=== PATIENT | female | born 2000 | race Caucasian/White ===

== ENCOUNTER 2020-02-26 14:52 | Observation (INO) | END 2020-02-26 17:10 | disposition home or self-care (01) | LOC: 1NENULAB | PROVIDERS: ADMIT Obstetrics & Gynecology; ATTEND Obstetrics & Gynecology ==

== ENCOUNTER → 2020-03-20 00:10 | Observation (INO) | END | disposition home or self-care (01) | LOC: 1NENULAB | PROVIDERS: ADMIT Obstetrics & Gynecology; ATTEND Obstetrics & Gynecology ==

== ENCOUNTER 2020-03-24 07:55 | Inpatient (IN) ==
[2020-03-24] MEDS ORDERED: Naloxone 0.4 MG/ML INJ IVP PRN (08:23)
[2020-03-24] MEDS ORDERED: Metoclopramide 10 MG/2 ML VIAL IVP PRN (08:23)
[2020-03-24] MEDS ORDERED: Ondansetron 4 MG/2 ML VIAL IVP PRN (08:23)
[2020-03-24] MEDS ORDERED: Famotidine 20 MG/2 ML VIAL IVP PRN (08:23)
[2020-03-24 08:50] LABS: Basophils % 0.4 %; Eosinophils # 0.2 K/mcL (0.0-0.6); Eosinophils % 1.5 %; Hematocrit 34.2 % (35.3-44.9); Hemoglobin 10.8 g/dL (11.5-15.4); Immature Granulocytes % 1.3 % (0-4); Lymphocytes # 1.9 K/mcL (0.6-4.6); Lymphocytes % 18.8 %; Mean Corpuscular HGB Conc 31.6 g/dL (31.6-35.5); Mean Corpuscular Hemoglobin 28.1 pg (28.0-33.3); Mean Corpuscular Volume 89.1 fL (83.0-100.0); Mean Platelet Volume 9.5 fL (9.4-12.4); Monocytes # 0.9 K/mcL (0.0-1.3); Monocytes % 8.5 %; Neutrophils # 7.1 K/mcL (1.6-8.9); Platelet Count 274 K/mcL (140-400); Red Blood Count 3.84 M/mcL (3.82-4.97); Red Cell Distribution Width 14.1 % (11.5-14.5); Segmented Neutrophils % 69.5 %; White Blood Count 10.2 K/mcL (4.3-11.1)
[2020-03-24 10:00] LABS: Amphetamine Screen,Urine Negative ng/mL (Cutoff=1000); Barbiturate Screen,Urine Negative ng/mL (Cutoff=200); Benzodiazepines Screen,Urine Negative ng/mL (Cutoff=200); Cannabinoid Screen,Urine Negative ng/mL (Cutoff = 50); Cocaine Screen,Urine Negative ng/mL (Cutoff= 300); Opiate Screen,Urine Negative ng/mL (Cutoff=300); Phencyclidine Screen,Urine Negative ng/mL (Cutoff=25)
[2020-03-24] MEDS ORDERED: miSOPROStoL 25 MCG TABLET VG SCH (12:00)
[2020-03-24] MEDS ORDERED: Oxytocin 20 units/ LR 1000 mL 20 UNIT/1,000 ML BAG IVC SCH (14:15)
[2020-03-24] MEDS: miSOPROStoL 25 MCG TABLET VG SCH ×2 (14:37→14:38)
[2020-03-24] MEDS: Ringers Solution, Lactated 1,000 ML IVC SCH ×2 (14:37→18:36)
[2020-03-24] MEDS ORDERED: *HR* FentaNYL (PF) 100 MCG/2 ML VIAL IVP PRN (17:11)
[2020-03-24] MEDS ORDERED: Lidocaine 1% 20 ML MDV INFILT PRN (18:02)
[2020-03-24] MEDS ORDERED: EPHEDrine 50 MG/ML VIAL IVP PRN (20:20)
[2020-03-24] MEDS ORDERED: Epidural Premix (fent/bupiv) 110 ML EP SCH (20:30)
[2020-03-25] MEDS ORDERED: Benzocaine/Menthol 56 GM AEROSOL SPRAY TP PRN (08:00)
[2020-03-25] MEDS ORDERED: Oxytocin 20 units/ LR 1000 mL 20 UNIT/1,000 ML BAG IVC ONE (08:00)
[2020-03-25] MEDS ORDERED: Oxytocin 20 units/ LR 1000 mL 20 UNIT/1,000 ML BAG IVC SCH (08:00)
[2020-03-25] MEDS ORDERED: Lanolin 7 G OINT...G. TP PRN (08:00)
[2020-03-25] MEDS ORDERED: *HR* HYDROcodone/Acet 5/325 mg TABLET PO PRN (08:00)
[2020-03-25] MEDS: Ibuprofen 600 MG TABLET PO PRN ×2 (08:12→16:36)
[2020-03-25] MEDS ORDERED: NON-FORMULARY MEDICATION 1 EACH EACH (Prenatal Vits96/Iron Fum/Folic [Prenatal Tablet] 1 E PO SCH (09:00)
[2020-03-25] MEDS: Acetaminophen 325 MG TABLET PO PRN ×2 (09:33→20:42)
[2020-03-25] MEDS: Prenatal Vit/FA 1 EACH TABLET PO SCH (09:33)
[2020-03-26 06:43] LABS: Basophils % 0.3 %; Eosinophils # 0.1 K/mcL (0.0-0.6); Eosinophils % 0.8 %; Hematocrit 26.2 % (35.3-44.9); Immature Granulocytes % 1.1 % (0-4); Lymphocytes # 1.8 K/mcL (0.6-4.6); Lymphocytes % 13.4 %; Mean Corpuscular HGB Conc 32.4 g/dL (31.6-35.5); Mean Corpuscular Hemoglobin 28.9 pg (28.0-33.3); Mean Corpuscular Volume 89.1 fL (83.0-100.0); Mean Platelet Volume 9.2 fL (9.4-12.4); Monocytes # 1.1 K/mcL (0.0-1.3); Monocytes % 7.7 %; Neutrophils # 10.5 K/mcL (1.6-8.9); Platelet Count 249 K/mcL (140-400); Red Blood Count 2.94 M/mcL (3.82-4.97); Red Cell Distribution Width 14.6 % (11.5-14.5); Segmented Neutrophils % 76.7 %; White Blood Count 13.7 K/mcL (4.3-11.1)
[2020-03-26 06:48] LABS: Hemoglobin 8.5 g/dL (11.5-15.4)
[2020-03-26] MEDS: Prenatal Vit/FA 1 EACH TABLET PO SCH (07:43)
[2020-03-26] MEDS: Ibuprofen 600 MG TABLET PO PRN (07:45)
[2020-03-26 08:08] VITALS: BP 112/72
[2020-03-26] MEDS: Acetaminophen 325 MG TABLET PO PRN (08:46)
== END 2020-03-26 13:41 | disposition home or self-care (01) | DRG 560 ==
LOC: 1NENULAB 08:05 → 1NENUOBS 03-25 08:45
PROVIDERS: ADMIT Obstetrics & Gynecology; ATTEND Obstetrics & Gynecology